=== PATIENT | female | born 1955 | race Caucasian/White ===

== ENCOUNTER 2018-12-16 10:52 | Inpatient (IN) ==
[2018-12-16] MEDS ORDERED: NS 1,000 ML IV ONE ×2 (11:35→12:46)
[2018-12-16] MEDS ORDERED: HUMULIN R SUBQ ONE ×2 (11:36→12:46)
[2018-12-16 12:16] LABS: BASO# 0.06 X1000 (0.0-0.2); BASO% 0.4 % (0.0-0.8); HEMATOCRIT 42.4 % (37.0-47.0); HEMOGLOBIN 13.2 g/dL (12.0-16.0); IMM GRAN# 0.28 X1000 (0.0-0.04); IMM GRAN% 1.8 % (0.0-0.5); LYMPH% 11.3 % (20.5-51.1); MCH 27.4 PG (27-31); MCHC 31.1 g/dL (33-37); MCV 88.1 FL (81-99); MONO# 1.41 X1000 (0.11-0.59); MONO% 8.9 % (1.7-9.3); MPV 11.4 FL (7.4-10.4); NEUT# 12.35 X1000 (1.4-6.5); NEUT% 77.6 % (42.2-75.2); PLT 369 X1000 (130-400); RBC 4.81 XMIL (4.2-5.4); RDW 13.7 % (11.5-14.5)
[2018-12-16 12:19] LABS: ALB/GLOB RATIO 1.2; ALBUMIN 3.5 g/dL (3.5-5.0); CREATININE 1.9 mg/dL (0.5-0.9); TOTAL BILIRUBIN 0.3 mg/dL (0.20-1.00); TOTAL PROTEIN 6.5 g/dL (6.3-8.3)
[2018-12-16 12:36] LABS: POTASSIUM 6.3 mmol/L (3.5-5.1)
[2018-12-16] MEDS ORDERED: DUONEB (A & A) INH ONE (12:54)
[2018-12-16] MEDS ORDERED: ALBUTEROL 0.5% INH CONC FOR HYPERKALEMIA INH ONE (13:42)
[2018-12-16 13:56] LABS: URINE SOURCE CATH
[2018-12-16] MEDS ORDERED: HUMULIN R 100 UNIT in NS 100 ML IV SCH (14:00)
[2018-12-16 14:01] LABS: BILIRUBIN URINE NEGATIVE (NEGATIVE); BLOOD URINE NEGATIVE (NEGATIVE); COLOR YELLOW; GLUCOSE URINE >1000 mg/dL (NEGATIVE); KETONE URINE 60 mg/dL (NEGATIVE); LEUKOCYTES URINE NEGATIVE (NEGATIVE); NITRITE URINE NEGATIVE (NEGATIVE); PROTEIN URINE TRACE mg/dL (NEGATIVE); SP GRAVITY URINE 1.015; TURBIDITY URINE CLEAR (CLEAR); UR EPITHELIAL CELLS <10 /HPF (<10); URINE BACTERIA NEGATIVE /HPF; URINE RBC <10 /HPF (<10); URINE WBC <10 /HPF (<10); UROBILINOGEN URINE NORMAL (NORMAL)
[2018-12-16] MEDS ORDERED: LEVAQUIN 500 MG/D5W 500 MG/100 ML IVPB IV ONE (14:06)
[2018-12-16 14:26] LABS: ALLEN TEST NO; BE -25.2 mmoll (-3.0-3.0); BLOOD TYPE ARTERIAL; HCO3-(ACT) 5.3 mmoll (20.0-26.0); METHB 1.1 % (0.0-1.5); O2(CT) 15.4 mL/dL (15.0-23.0); O2HB 96.7 % (95.0-99.0); PO2(98.6) 114 mmHg (60-100); SAMPLE BLOOD; SAO2 99.2 % (95.0-100.0); THB 11.2 g/dL (11.5-17.4)
[2018-12-16 14:29] LABS: MODALITY ROOM AIR
[2018-12-16 14:31] LABS: PCO2(98.6) 14 mmHg (35-45); pH(98.6) 7.03 (7.35-7.45)
[2018-12-16] MEDS ORDERED: SODIUM BICARBONATE 8.4% IV PUSH ONE (15:32)
[2018-12-16] MEDS ORDERED: CALCIUM CARBONATE PO ONE (15:33)
--- NOTE | 2018-12-16 15:35 | PROVIDER DOCUMENTATION ---
This chart was entered by Divya Kim Scribe, acting as scribe for Edison Beach MD. HPI-General Adult - General Chief Complaint: High Blood Sugar Stated Complaint: HIGH BP,HIGH BLOOD SUGAR,NAUSEA,DIABETIC Time Seen by Provider: 12/16/18 11:22 Source: patient, family Allergies/Adverse Reactions: Patient Allergies Allergy/AdvReac Type Severity Reaction Status Date / Time acetaminophen [From Lortab] AdvReac NAUSEA/VOMI Verified 12/16/18 13:07 TING hydrocodone bitartrate * AdvReac NAUSEA/VOMI Verified 12/16/18 13:07 [From Lortab] TING Home Medications: Home Medication List Medication Instructions Recorded Confirmed Last Taken Type Losartan/Hydrochlorothiazide 1 tab PO DAILY 10/12/14 12/16/18 Unknown History [Hyzaar 100-12.5 Tablet] SIMVAstatin [Zocor] 40 mg PO QHS 10/12/14 12/16/18 Unknown History Benzonatate 200 mg PO TID 12/16/18 12/16/18 Unknown History Doxazosin Mesylate [Cardura] 2 mg PO DAILY 12/16/18 12/16/18 Unknown History Insulin Glargine,Hum.rec.anlog 75 unit SQ QAM 12/16/18 12/16/18 Unknown History [Toujeo Solostar] Metoprolol Succinate E.r. [Toprol 100 mg PO DAILY 12/16/18 12/16/18 Unknown History Xl] - History of Present Illness -Gen Adult Nature of Presenting Problems: 63 y/o female presents to ED with lethargy, hyperglycemia, back pain, and change in mental status onset this morning. Family of pt reports he checked her sugar after he noticed her acting strange, but she could not remember how to give herself insulin. He states she has not eaten or taken insulin in several days. Pt is sleeping, but easily aroused. Location of Pain/Injury: reports: back Pain Radiation: reports: no radiation Quality of Pain: reports: aching Severity: reports: mild Onset/Duration: reports: this morning Timing: reports: still present Context/Activities at Onset: reports: none Modifying Factors: improves with: other medication (insulin) Associated Symptoms: reports: back/neck pain (back), loss of appetite, other ( lethargic, hyperglycemia, change in mental status) Similar Symptoms Previously?: No Recently seen or treated by another doctor?: No - Diabetes Related Context Context: reports: high blood sugar, change in mental status Review of Systems - Adult - REVIEW OF SYSTEMS - ADULT Constitutional: reports: other (lethargic, change in mental status). denies: chills, fever Eyes: reports: no symptoms reported Ears, Nose, Mouth & Throat: reports: no symptoms reported Cardiovascular: denies: chest pain, palpitations Respiratory: denies: cough, shortness of breath Gastrointestinal: reports: poor appetite. denies: abdominal pain, diarrhea, nausea, vomiting Genitourinary: reports: no symptoms reported Musculoskeletal: reports: back pain. denies: joint pain Integumentary: reports: no symptoms reported Neurological: reports: other (change in mental status). denies: dizziness/ vertigo, seizure Psychiatric: reports: no symptoms reported Endocrine: reports: other (hyperglycemia). denies: goiter Hematologic/Lymphatic: reports: no symptoms reported Allergic/Immunologic: reports: no symptoms reported All Other Systems: Reviewed and Negative Past History - Adult - PAST MEDICAL HISTORY-ADULT Review of Records: reports: Old Records Reviewed, Nursing Assessment Review, Medications Reviewed Major Childhood Illnesses: reports: denies history Cardiovascular: reports: HTN, hyperlipidemia Endocrine/Immune: reports: Diabetes Diabetes Type: Type 2 - PRIOR SURGERIES/PROCEDURES Surgical/Procedure History: reports: none - IMMUNIZATION STATUS Childhood Immunizations: See Nurse Assessment Flu Vaccine: See Nurse Assessment - FAMILY HISTORY Family History: reviewed, not pertinent - SOCIAL HISTORY Smoking: quit greater than 1 year Substance Use: none/never Alcohol Use Frequency: never Living Situation: family Physical Exam-General - PHYSICAL EXAM-ADULT Initial Vital Signs Reviewed: Yes - CONSTITUTIONAL General Appearance: appears well, no apparent distress, lethargic, other ( sleeping; easily aroused) - EYES Eyes: PERRL/EOMI, pink conjunctivae - HEAD, EARS, NOSE, MOUTH & THROAT HENMT: normocephalic/atraumatic, moist mucous membranes, normal ENT inspection - NECK Neck: non-tender, full range of motion - RESPIRATORY Respiratory: chest non-tender, lungs clear, normal breath sounds - CARDIOVASCULAR Cardiovascular: normal peripheral pulses, regular rate, rhythm - GASTROINTESTINAL (ABDOMEN) Abdominal Exam: normal bowel sounds, non tender, soft - MUSCULOSKELETAL Back Exam: normal inspection, no CVA tenderness Extremity: normal range of motion, non-tender, normal gait - SKIN Integumentary: normal color, warm/dry - NEUROLOGIC Neurologic: grossly normal, other (sleeping; easily aroused) - PSYCHIATRIC Psych/Mental Status: normal mood/affect, normal thought content, normal thought process, disheveled, other (sleeping; easily aroused) Progress - PLAN OF CARE/RESULTS Progress/Plan/Lab Results: Vital Signs - 8 hr 12/16/18 10:58 Temperature 97.4 F L Pulse Rate 82 Respiratory Rate 22 Blood Pressure 128/50 O2 Sat by Pulse Oximetry 100 Laboratory Results - last 24 hr 12/16/18 12/16/18 12/16/18 11:04 11:48 11:48 WBC 15.90 H RBC 4.81 Hgb 13.2 Hct 42.4 MCV 88.1 MCH 27.4 MCHC 31.1 L RDW Std Deviation 13.7 Plt Count 369 MPV 11.4 H Immature Gran % (Auto) 1.8 H Neut % (Auto) 77.6 H Lymph % (Auto) 11.3 L Perkins % (Auto) 8.9 Eos % (Auto) 0.0 Baso % (Auto) 0.4 Immature Gran # (Auto) 0.28 H Neut # (Auto) 12.35 H Lymph # (Auto) 1.80 Perkins # (Auto) 1.41 H Eos # (Auto) 0.00 Baso # (Auto) 0.06 Sodium 127 L Potassium 6.3 H* Chloride 75 L Carbon Dioxide 6 L Anion Gap 46 BUN 61 H Creatinine 1.9 H Estimated GFR/1.73 m2 27 BUN/Creatinine Ratio 32 Glucose 941 H* POC Glucose 500 H Calculated Osmolality 319 Calcium 10.0 Total Bilirubin 0.30 AST 16 ALT 13 Alkaline Phosphatase 91 Total Protein 6.5 Albumin 3.5 Globulin 3.0 Albumin/Globulin Ratio 1.2 Orders Category Date Time Status Nursing- Obtain EKG once Care 12/16/18 12:45 Active Saline Loc NOW Care 12/16/18 11:35 Active CBC WITH ELECTRONIC DIFF [HEME] Stat Lab 12/16/18 11:48 Completed COMPREHENSIVE METABOLIC PANEL [CHEM] Stat Lab 12/16/18 11:48 Completed URINALYSIS W/POSS RFLX CULT [URINALYSIS] Stat Lab 12/16/18 11:36 Uncollected 0.9% Sodium Chloride Inj [Ns] 1,000 ml Med 12/16/18 11:35 Discontinued IV 999 mls/hr 0.9% Sodium Chloride Inj [Ns] 1,000 ml Med 12/16/18 12:46 Active IV 999 mls/hr Albuterol 2.5MG/Ipratrop 0.5MG [Duoneb (A & A)] Med 12/16/18 12:54 Discontinued 3 ml INH NOW ONE Insulin Human Regular [Humulin R] Med 12/16/18 12:46 Discontinued 10 unit SUBQ NOW ONE Insulin Human Regular [Humulin R] Med 12/16/18 11:36 Discontinued 6 unit SUBQ NOW ONE Aerosol Treatments Routine Oth 12/16/18 12:54 Active Aerosol Treatments Stat Oth 12/16/18 12:54 Active EKG [EKG] Stat Ther 12/16/18 11:36 Ordered EKG [EKG] Stat Ther 12/16/18 12:45 Ordered Laboratory Tests 12/16/18 12/16/18 12/16/18 11:04 11:48 11:48 WBC 15.90 H RBC 4.81 Hgb 13.2 Hct 42.4 MCV 88.1 MCH 27.4 MCHC 31.1 L RDW Std Deviation 13.7 Plt Count 369 MPV 11.4 H Immature Gran % (Auto) 1.8 H Neut % (Auto) 77.6 H Lymph % (Auto) 11.3 L Perkins % (Auto) 8.9 Eos % (Auto) 0.0 Baso % (Auto) 0.4 Immature Gran # (Auto) 0.28 H Neut # (Auto) 12.35 H Lymph # (Auto) 1.80 Perkins # (Auto) 1.41 H Eos # (Auto) 0.00 Baso # (Auto) 0.06 Sodium 127 L Potassium 6.3 H* Chloride 75 L Carbon Dioxide 6 L Anion Gap 46 BUN 61 H Creatinine 1.9 H Estimated GFR/1.73 m2 27 BUN/Creatinine Ratio 32 Glucose 941 H* POC Glucose 500 H Calculated Osmolality 319 Calcium 10.0 Phosphorus Magnesium Total Bilirubin 0.30 AST 16 ALT 13 Alkaline Phosphatase 91 Total Protein 6.5 Albumin 3.5 Globulin 3.0 Albumin/Globulin Ratio 1.2 Urine Source Urine Color Urine Turbidity Urine pH Ur Specific [place] Urine Protein Ur Glucose (Stick) Ur Ketones (Stick) Urine Blood Urine Nitrite Urine Bilirubin Urobilinogen Dipstick Urine Leukocytes Urine WBC (Auto) Urine RBC (Auto) U Epithel Cells (Auto) Urine Bacteria (Auto) 12/16/18 12/16/18 12/16/18 11:48 11:48 12:57 WBC RBC Hgb Hct MCV MCH MCHC RDW Std Deviation Plt Count MPV Immature Gran % (Auto) Neut % (Auto) Lymph % (Auto) Perkins % (Auto) Eos % (Auto) Baso % (Auto) Immature Gran # (Auto) Neut # (Auto) Lymph # (Auto) Perkins # (Auto) Eos # (Auto) Baso # (Auto) Sodium Potassium Chloride Carbon Dioxide Anion Gap BUN Creatinine Estimated GFR/1.73 m2 BUN/Creatinine Ratio Glucose POC Glucose 500 H Calculated Osmolality Calcium Phosphorus 9.0 H Magnesium 2.4 Total Bilirubin AST ALT Alkaline Phosphatase Total Protein Albumin Globulin Albumin/Globulin Ratio Urine Source Urine Color Urine Turbidity Urine pH Ur Specific [place] Urine Protein Ur Glucose (Stick) Ur Ketones (Stick) Urine Blood Urine Nitrite Urine Bilirubin Urobilinogen Dipstick Urine Leukocytes Urine WBC (Auto) Urine RBC (Auto) U Epithel Cells (Auto) Urine Bacteria (Auto) 12/16/18 12/16/18 13:40 13:46 WBC RBC Hgb Hct MCV MCH MCHC RDW Std Deviation Plt Count MPV Immature Gran % (Auto) Neut % (Auto) Lymph % (Auto) Perkins % (Auto) Eos % (Auto) Baso % (Auto) Immature Gran # (Auto) Neut # (Auto) Lymph # (Auto) Perkins # (Auto) Eos # (Auto) Baso # (Auto) Sodium Potassium Chloride Carbon Dioxide Anion Gap BUN Creatinine Estimated GFR/1.73 m2 BUN/Creatinine Ratio Glucose POC Glucose 500 H Calculated Osmolality Calcium Phosphorus Magnesium Total Bilirubin AST ALT Alkaline Phosphatase Total Protein Albumin Globulin Albumin/Globulin Ratio Urine Source CATH Urine Color YELLOW Urine Turbidity CLEAR Urine pH 5.0 Ur Specific [place] 1.015 Urine Protein TRACE A Ur Glucose (Stick) >1000 A Ur Ketones (Stick) 60 A Urine Blood NEGATIVE Urine Nitrite NEGATIVE Urine Bilirubin NEGATIVE Urobilinogen Dipstick NORMAL Urine Leukocytes NEGATIVE Urine WBC (Auto) <10 Urine RBC (Auto) <10 U Epithel Cells (Auto) <10 Urine Bacteria (Auto) NEGATIVE A/P: Pt in DKA, started DKA protocol. Will admit to ICU. pt stable, vitals stable. Result Diagrams: 12/16/18 11:48 12/16/18 11:48 - REASSESSMENT Reassessment #1 Time Reassessed: 12:00 Status: unchanged Reassessment #2 Time Reassessed: 13:00 (gave another dose of insulin 10 u BG >900) - EKG 1 Time of EKG reading by physician:: 11:40 EKG Read and Signed by:: Edison Beach EKG Interpretation (*Must complete 3 of following elements*): Abnormal Rate: 68 Rhythm: NSR Stanton: normal QRS: LVH (with repolarization abnormality) ID Interval: normal ST Wave: normal 2 Time of EKG reading by physician:: 13:10 EKG Read and Signed by:: Edison Beach EKG Interpretation (*Must complete 3 of following elements*): Abnormal Rate: 88 Rhythm: NSR Stanton: normal QRS: other (septal infarct) ID Interval: normal ST Wave: normal - CONSULTS/PCP/HOSPITALIST Notification #1 *Consult/PCP/Hospitalist*: Dr. Munroe Time Discussed: 14:27 Reason/Comments: DKA Consult Disposition: Admit Departure - Departure Date of Disposition Decision: 12/16/18 Time of Disposition Decision: 14:27 DIAGNOSIS: DKA (diabetic ketoacidoses) Qualifiers: Diabetes mellitus type: type 2 Diabetes mellitus complication detail: without coma Qualified Code(s): E11.10 - Type 2 diabetes mellitus with ketoacidosis without coma Disposition: ADMITTED INPATIENT 09 Certified Medical Emergency: Emergent Condition: Fair - Critical Care Note This patient required my direct & personal management of CC.: No Attestation - Physician/ KEVAN Attestation Patient care was provided by Advanced Practice Provider:: No The physician spent face to face time with patient:: Yes Advanced Practice Provider documentation review:: Supervising physician onsite and consulted in the evaluation and care of this patient. The physician did have a face to face encounter with the patient. This chart was documented by the indicated scribe, (Divya Kim Scribe) and accurately reflects the services I performed and decisions made by Yong florence Christophe J., MD, as attested by the provider's signature.
[2018-12-16] MEDS ORDERED: SODIUM CHLORIDE 0.9% INJ SCH (15:45)
[2018-12-16] MEDS ORDERED: PROTONIX IV SCH (15:45)
[2018-12-16] MEDS ORDERED: D5 NS 1,000 ML IV SCH (15:55)
[2018-12-16] MEDS ORDERED: TUMS PO ONE (16:00)
--- NOTE | 2018-12-16 16:00 | HISTORY AND PHYSICAL ---
CHIEF COMPLAINT: Polyuria, polydipsia, elevated blood sugar, confusion. HISTORY OF PRESENT ILLNESS: She is a 63-year-old white female patient of Dr. Munroe who came in with above problems. The patient was found to be with blood sugar 940. Apparently, she skipped the insulin for few days. She was seen at her family physician on Monday. Details are not known. Patient is slightly confused. She has acidotic. Blood sugar 940 with ketones, metabolic acidosis. Admitted to the ICU for DKA. Follow up on insulin protocol. She was started on IV fluids, insulin, followed by insulin drip. As a result, hospital admission was warranted. PAST MEDICAL HISTORY: Hypertension, type 2 diabetes insulin dependent, hyperlipidemia. PAST SURGICAL HISTORY: None reported. MEDICATIONS: Amlodipine 5 mg daily, Humalog mix 50/50 45 units subcutaneous b.i.d., Hyzaar 100/12.5 daily, simvastatin 40 daily. ALLERGIES: [place]. SOCIAL HISTORY: She is 4th time. No children. 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 No smoking. No alcohol. FAMILY HISTORY: Father of prostate cancer. Mom of heart attack. HEALTH MAINTENANCE: Not up-to-date on flu, pneumonia, mammography, colonoscopy. REVIEW OF SYSTEMS: Constitutional: Confused. HEENT: Just vision problems and dryness of the mouth. No sore throat. Neck: No neck pain. No goiter. Cardiopulmonary: No chest pain, shortness of breath, PND, orthopnea. She is hyperventilating due to Kussmaul breathing. GI: No nausea, vomiting, abdominal pain, diarrhea. : History of hesitancy, polyuria, polydipsia. Musculoskeletal: No swelling of feet. No joint pains. No back pain. Neurologic: No focal symptoms, seizures, dizziness, vertigo. PHYSICAL EXAMINATION: VITAL SIGNS: She is tachypneic and tachycardic. Hemodynamics were stable. No fever. HEENT: Atraumatic, normocephalic. Pupils equal, react to light. Dry mucous membranes. NECK: Supple. No lymphadenopathy. CHEST: Bilateral air entry. HEART: Sounds are regular. ABDOMEN: Belly is soft, nontender. Good bowel sounds. Very obese. No signs of peritonitis. EXTREMITIES: No peripheral edema. Sensory exam intact. Decreased pulses. No signs of gangrene. NEUROLOGICAL: No focal deficits. INVESTIGATIONS: White cell count 15, hematocrit 42, platelets 369,000. ABG: pH is 7.0, pCO2 14, pO2 114. Lactate 3.5. SMA 7: Sodium 137, potassium 6.3, BUN 61, creatinine 1.9, glucose 941. Phosphorus 9.0. Urinalysis positive for ketones. ASSESSMENT AND PLAN: A 63-year-old white female admitted to the hospital with diabetic ketoacidosis with Kussmaul breathing, resuscitated in the emergency room. IV fluids, IV insulin drip, DKA protocol. Getting to bed in ICU. Continue DVT prophylaxis with Lovenox, gastrointestinal prophylaxis with IV Protonix, and slowly reconcile home medications. Discussed with the family at bedside and Dr. Dell Munroe is going to follow up in the morning. cc: MD Dell Catherine MD
[2018-12-16] MEDS: NS 1,000 ML IV SCH (18:16)
[2018-12-16] MEDS ORDERED: HUMULIN R 100 UNIT in NS 99 ML IV SCH (19:17)
[2018-12-16] MEDS ORDERED: D50W SYRINGE IV PRN (19:17)
[2018-12-16 20:27] LABS: CALCIUM 8.6 mg/dL (8.8-10.2); CREATININE 2.2 mg/dL (0.5-0.9); MAGNESIUM 2.1 mg/dL (1.5-2.7); PHOSPHORUS 6.3 mg/dL (2.7-4.5); POTASSIUM 4.3 mmol/L (3.5-5.1)
[2018-12-16 22:26] LABS: ALLEN TEST YES; BE -16.9 mmoll (-3.0-3.0); BLOOD TYPE ARTERIAL; HCO3-(ACT) 11.8 mmoll (20.0-26.0); O2(CT) 15.9 mL/dL (15.0-23.0); O2HB 97.4 % (95.0-99.0); PO2(98.6) 146 mmHg (60-100); SAMPLE BLOOD; THB 11.4 g/dL (11.5-17.4); pH(98.6) 7.27 (7.35-7.45)
[2018-12-16 22:27] LABS: MODALITY ROOM AIR; PCO2(98.6) 17 mmHg (35-45)
[2018-12-17 00:13] LABS: CALCIUM 8.7 mg/dL (8.8-10.2); CREATININE 2.1 mg/dL (0.5-0.9); MAGNESIUM 1.9 mg/dL (1.5-2.7); PHOSPHORUS 3.8 mg/dL (2.7-4.5)
[2018-12-17] MEDS: NS 1,000 ML IV SCH ×4 (02:17→20:09)
[2018-12-17 02:20] LABS: ALLEN TEST YES; BE -8.9 mmoll (-3.0-3.0); BLOOD TYPE ARTERIAL; O2(CT) 15.3 mL/dL (15.0-23.0); O2HB 97.1 % (95.0-99.0); PCO2(98.6) 25 mmHg (35-45); PO2(98.6) 147 mmHg (60-100); SAMPLE BLOOD; SAO2 99.7 % (95.0-100.0); pH(98.6) 7.38 (7.35-7.45)
[2018-12-17 02:21] LABS: MODALITY ROOM AIR
[2018-12-17 05:29] LABS: CALCIUM 8.5 mg/dL (8.8-10.2); CREATININE 1.9 mg/dL (0.5-0.9); MAGNESIUM 1.7 mg/dL (1.5-2.7); PHOSPHORUS 1.9 mg/dL (2.7-4.5); POTASSIUM 3.7 mmol/L (3.5-5.1)
[2018-12-17 05:43] LABS: CREATININE 1.8 mg/dL (0.5-0.9); MAGNESIUM 1.9 mg/dL (1.5-2.7)
[2018-12-17] MEDS ORDERED: MAGNESIUM SULFATE 2 GM/S.W.I. 2 GM/50 ML IVPB IV ONE (05:48)
[2018-12-17 05:57] LABS: ALLEN TEST YES; BE -5.4 mmoll (-3.0-3.0); BLOOD TYPE ARTERIAL; HCO3-(ACT) 20.7 mmoll (20.0-26.0); METHB 1.6 % (0.0-1.5); MODALITY ROOM AIR; O2(CT) 15.5 mL/dL (15.0-23.0); O2HB 95.7 % (95.0-99.0); PCO2(98.6) 32 mmHg (35-45); PO2(98.6) 97 mmHg (60-100); SAMPLE BLOOD; SAO2 98.8 % (95.0-100.0); THB 11.4 g/dL (11.5-17.4); pH(98.6) 7.38 (7.35-7.45)
[2018-12-17 06:01] LABS: ALB/GLOB RATIO 0.9; ALBUMIN 2.9 g/dL (3.5-5.0); CREATININE 1.7 mg/dL (0.5-0.9); TOTAL BILIRUBIN 0.21 mg/dL (0.20-1.00); TOTAL PROTEIN 6.2 g/dL (6.3-8.3)
--- NOTE | 2018-12-17 07:20 | EKG Report ---
Test Performed on : 12/16/2018 12:56:03 PM Test Reason : CP Blood Pressure : / mmHG Vent. Rate : 088 BPM Atrial Rate : 088 BPM P-R Int : 134 ms QRS Dur : 076 ms QT Int : 374 ms P-R-T Axes : 075 -05 041 degrees QTc Int : 452 ms Normal sinus rhythm. Septal infarct , age undetermined Abnormal ECG When compared with ECG of 16-DEC-2018 11:15, (Unconfirmed) Septal infarct is now present Unconfirmed Result
--- NOTE | 2018-12-17 07:21 | Diag Imaging Result Doc PS360 ---
EXAM: CHEST-PORTABLE 12/17/2018 HISTORY: NG tube placement TECHNIQUE: AP portable at 0529 COMMENT: There is an NG tube with its tip below the diaphragm. The heart size is within normal limits and the lungs appear to be clear. IMPRESSION: NG tube in the stomach. Electronically signed by David Fair 12/17/2018 7:18 AM
--- NOTE | 2018-12-17 08:09 | PROGRESS NOTE ---
DATE: 12/17/2018 SUBJECTIVE: The patient is a 63-year-old white female who presented to the ER with nausea, confusion, elevated blood sugar over 900. Admitted by Dr. Camp for diabetic ketoacidosis. She was given IV insulin and fluids in the emergency room. Blood gases this morning are improved with pH 7.38, pCO2 32, PO2 97, base excess -5.4. OBJECTIVE: Vital signs: Temperature 98, heart rate 93, respiration 19, blood pressure 167/48, O2 saturation on room air 99%. General: Patient is lethargic, but arousable. She complains of no specific pain. Chest: Clear. Abdomen: Soft. LABORATORY: Sodium 136, potassium 4, chloride 93, carbon dioxide 16, BUN 66, creatinine 1.7, glucose 387, total protein 6.2, albumin 2.9. Liver functions normal. Vitamin B12 greater than 2000. TSH 1.4. PLAN: Resume her home insulin and continue sliding scale. NG tube will remain until later today to see if she tolerates p.o. liquids. She will be kept in ICU today. cc: Dell Munroe MD
[2018-12-17 08:18] LABS: BASO# 0.04 X1000 (0.0-0.2); BASO% 0.3 % (0.0-0.8); HEMATOCRIT 34.4 % (37.0-47.0); HEMOGLOBIN 11.8 g/dL (12.0-16.0); IMM GRAN# 0.13 X1000 (0.0-0.04); LYMPH# 1.62 X1000 (1.2-3.4); LYMPH% 12.5 % (20.5-51.1); MCH 27.9 PG (27-31); MCHC 34.3 g/dL (33-37); MCV 81.3 FL (81-99); MONO# 1.28 X1000 (0.11-0.59); MONO% 9.9 % (1.7-9.3); MPV 10.2 FL (7.4-10.4); NEUT# 9.86 X1000 (1.4-6.5); NEUT% 76.3 % (42.2-75.2); PLT 284 X1000 (130-400); RBC 4.23 XMIL (4.2-5.4); RDW 13.6 % (11.5-14.5); WBC 12.93 X1000 (4.8-10.8)
--- NOTE | 2018-12-17 08:21 | EKG Report ---
Test Performed on : 12/16/2018 11:15:05 AM Test Reason : high blood sugar Blood Pressure : / mmHG Vent. Rate : 068 BPM Atrial Rate : 068 BPM P-R Int : 132 ms QRS Dur : 082 ms QT Int : 408 ms P-R-T Axes : 074 000 068 degrees QTc Int : 433 ms Normal sinus rhythm. Left ventricular hypertrophy with repolarization abnormality Abnormal ECG No previous ECGs available Unconfirmed Result
[2018-12-17 08:58] LABS: CALCIUM 8.6 mg/dL (8.8-10.2); CREATININE 1.4 mg/dL (0.5-0.9); MAGNESIUM 2.4 mg/dL (1.5-2.7); PHOSPHORUS 1.5 mg/dL (2.7-4.5); POTASSIUM 3.5 mmol/L (3.5-5.1)
[2018-12-17] MEDS ORDERED: LOVENOX SUBQ SCH (09:00)
[2018-12-17] MEDS ORDERED: INSULIN PEN NEEDLES ONE (09:24)
[2018-12-17] MEDS: TOUJEO SOLOSTAR SUBQ SCH (09:27)
[2018-12-17] MEDS: ZOFRAN IV PRN ×2 (09:42→14:37)
[2018-12-17 09:59] LABS: ALLEN TEST NO; BE -3.2 mmoll (-3.0-3.0); BLOOD TYPE ARTERIAL; HCO3-(ACT) 22.4 mmoll (20.0-26.0); METHB 1.7 % (0.0-1.5); O2(CT) 15.2 mL/dL (15.0-23.0); O2HB 95.1 % (95.0-99.0); PCO2(98.6) 35 mmHg (35-45); PO2(98.6) 88 mmHg (60-100); SAMPLE BLOOD; SAO2 98.2 % (95.0-100.0); THB 11.3 g/dL (11.5-17.4); pH(98.6) 7.39 (7.35-7.45)
[2018-12-17 10:00] LABS: MODALITY ROOM AIR
[2018-12-17] MEDS: HUMALOG SUBQ SCH ×3 (11:03→20:10)
[2018-12-17 12:21] LABS: CALCIUM 8.6 mg/dL (8.8-10.2); CREATININE 1.2 mg/dL (0.5-0.9); MAGNESIUM 2.3 mg/dL (1.5-2.7); PHOSPHORUS 2.2 mg/dL (2.7-4.5); POTASSIUM 3.8 mmol/L (3.5-5.1)
[2018-12-17] MEDS: HYZAAR 100/12.5 MG TAB PO SCH (12:38)
[2018-12-17] MEDS: MYCOSTATIN POWDER TOP SCH ×2 (12:39→20:09)
[2018-12-17] MEDS: TOPROL XL PO SCH (12:39)
[2018-12-18] MEDS: NS 1,000 ML IV SCH ×4 (04:29→21:33)
[2018-12-18 06:25] LABS: AGAP 11; BUN 24 mg/dL (8-22); CALCIUM 8.3 mg/dL (8.8-10.2); CHLORIDE 108 mmol/L (98-107); COSMO 298; CREATININE 0.8 mg/dL (0.5-0.9); ESTIMATED GFR > 60; GLUCOSE 153 mg/dL (70-104); POTASSIUM 3.3 mmol/L (3.5-5.1); SODIUM 146 mmol/L (136-145); TCO2 27 mmol/L (25-35)
[2018-12-18] MEDS: HUMALOG SUBQ SCH ×4 (06:54→21:31)
[2018-12-18] MEDS: HYZAAR 100/12.5 MG TAB PO SCH (08:37)
[2018-12-18] MEDS: TOPROL XL PO SCH (08:37)
[2018-12-18] MEDS: MYCOSTATIN POWDER TOP SCH (08:38)
--- NOTE | 2018-12-18 08:44 | PROGRESS NOTE ---
DATE: 12/18/2018 VITAL SIGNS: Temperature 97.8 degrees, heart rate 69, respirations 21, blood pressure 150/65, O2 saturation on room air 96%. LABORATORY: Sodium 146, potassium 3.3, BUN 24, creatinine 0.8, glucose 175, calcium 8.3. OBJECTIVE: The patient is alert, but weak. She had no vomiting overnight. Chest is clear. Abdomen is soft. PLAN: Discontinue Younger, increased diet to soft, transfer to the floor, ambulate with assistance. cc: Dell Munroe MD
[2018-12-18] MEDS ORDERED: MYCOSTATIN POWDER TOP SCH (08:50)
[2018-12-18] MEDS: TOUJEO SOLOSTAR SUBQ SCH (09:46)
--- NOTE | 2018-12-18 09:56 | Diag Imaging Result Doc PS360 ---
EXAM: MRI BRAIN W/O CONTRAST 12/18/2018 HISTORY: mental change TECHNIQUE: T1 sagittal, axial, T2, FLAIR, DWI axial and coronal gradient echo. COMMENT: There are no previous studies available for comparison. There is no evidence of restricted diffusion. There is no evidence of mass effect, bleed, or abnormal extra-axial fluid collection. There are no T2 weighted signal abnormalities. IMPRESSION: Normal MRI of the brain. Electronically signed by David Fair 12/18/2018 9:54 AM
[2018-12-18] MEDS: CARDURA PO SCH (14:02)
[2018-12-18] MEDS: ZOFRAN IV PRN (17:38)
[2018-12-18] MEDS: ZOCOR PO SCH (21:30)
[2018-12-19] MEDS: NS 1,000 ML IV SCH ×3 (05:23→18:11)
[2018-12-19] MEDS: HUMALOG SUBQ SCH ×4 (07:22→21:45)
--- NOTE | 2018-12-19 09:14 | PROGRESS NOTE ---
DATE: 12/19/2018 VITAL SIGNS: Temperature 98.5 degrees, heart rate 81, respiration 18, blood pressure 153/55, O2 saturation on room air 96%. The patient is somnolent, but arousable. She has not eaten any breakfast. She responds appropriately, but continues to be very weak. Physical therapy will be asked to assist in ambulation. Hopefully, she will improve through the day today. She has had no nausea and vomiting. Last blood sugar was 161. PLAN: Discharge home when eating and ambulating. cc: Dell Munroe MD
[2018-12-19] MEDS: HYZAAR 100/12.5 MG TAB PO SCH (09:48)
[2018-12-19] MEDS: TOPROL XL PO SCH (09:49)
[2018-12-19] MEDS: CARDURA PO SCH (09:49)
[2018-12-19] MEDS: TOUJEO SOLOSTAR SUBQ SCH (09:49)
[2018-12-19] MEDS ORDERED: INSULIN PEN NEEDLES ONE (09:55)
[2018-12-19] MEDS ORDERED: LEXAPRO PO ONE (17:02)
[2018-12-19] MEDS: LEXAPRO PO SCH (17:30)
[2018-12-19] MEDS: ZOCOR PO SCH (21:45)
[2018-12-20] MEDS: HUMALOG SUBQ SCH ×4 (06:43→21:45)
[2018-12-20] MEDS: NS 1,000 ML IV SCH ×3 (07:05→21:47)
[2018-12-20 07:48] LABS: AGAP 11; BUN 12 mg/dL (8-22); CALCIUM 7.1 mg/dL (8.8-10.2); CHLORIDE 101 mmol/L (98-107); COSMO 286; CREATININE 0.6 mg/dL (0.5-0.9); ESTIMATED GFR > 60; GLUCOSE 151 mg/dL (70-104); POTASSIUM 2.7 mmol/L (3.5-5.1); SODIUM 142 mmol/L (136-145); TCO2 30 mmol/L (25-35)
--- NOTE | 2018-12-20 08:28 | PROGRESS NOTE ---
DATE: 12/20/2018 VITAL SIGNS: Temperature 97.8 degrees, heart rate 78, respirations 17, blood pressure 174/69, O2 saturation on room air of 97%. LABORATORY: Sodium 142, potassium 2.7, BUN 12, creatinine 0.6, glucose 151, calcium 7.1. SUBJECTIVE: Patient is somnolent, but arousable. She seems a little more alert and responds appropriately to questioning. OBJECTIVE: Chest is clear. Abdomen is soft and nontender. PLAN: Add IV potassium. Recheck potassium this afternoon at 4. Physical therapy is just to assist ambulation. Hopefully, she will be able to eat a little better today. cc: Dell Munroe MD
[2018-12-20] MEDS: TOUJEO SOLOSTAR SUBQ SCH (09:06)
[2018-12-20] MEDS: LEXAPRO PO SCH (09:07)
[2018-12-20] MEDS: HYZAAR 100/12.5 MG TAB PO SCH (09:07)
[2018-12-20] MEDS: TOPROL XL PO SCH (09:07)
[2018-12-20] MEDS: CARDURA PO SCH (09:08)
[2018-12-20] MEDS: POTASSIUM CHLORIDE 20 MEQ/SWI 20 MEQ/100 ML IVPB IV SCH ×2 (09:38→12:51)
[2018-12-20] MEDS: ZOCOR PO SCH (21:46)
[2018-12-20] MEDS: KLOR-CON PO SCH (21:47)
[2018-12-21] MEDS: HUMALOG SUBQ SCH (07:24)
[2018-12-21] MEDS: NS 1,000 ML IV SCH (07:34)
[2018-12-21] MEDS: KLOR-CON PO SCH (08:01)
[2018-12-21] MEDS: TOPROL XL PO SCH (08:01)
[2018-12-21] MEDS: LEXAPRO PO SCH (08:01)
[2018-12-21] MEDS: CARDURA PO SCH (08:01)
[2018-12-21] MEDS: HYZAAR 100/12.5 MG TAB PO SCH (08:01)
[2018-12-21] MEDS: TOUJEO SOLOSTAR SUBQ SCH (08:05)
[2018-12-21 08:11] VITALS: BP 160/61
--- NOTE | 2018-12-21 08:26 | DISCHARGE SUMMARY ---
ADMISSION DATE: 12/16/2018 DISCHARGE DATE: 12/21/2018 FINAL DIAGNOSES: 1. Diabetic ketoacidosis. 2. Gastritis. 3. Dehydration. 4. Uncontrolled diabetes. 5. Hypertension. 6. Hypercholesterolemia. DISCHARGE MEDICATIONS: Usual medication at home including Lantus 75 units subcu every morning, and addition of potassium chloride 10 mEq b.i.d. (14), Lexapro 10 mg (30 with 2 refills), and doxazosin 2 mg (30 with 2 refills 1 daily). HISTORY: This is the first recent [facility] admission for this 63-year-old white female who presented to the emergency room with nausea and vomiting, change in mental status with lethargy, and was found to have blood sugar over 900. She was acidotic and volume depleted. She was given fluids in the emergency room and IV insulin. She was transferred to intensive care unit for additional care. INITIAL LABORATORY: Sodium 127, potassium 6.3, glucose 941, magnesium 2.4, phosphorus 9.0, hemoglobin 13.2, hematocrit 42.4, and white blood count [id number]. Urinalysis with less than 10 WBCs and negative for bacteria. HOSPITAL COURSE: She slowly improved to intensive care and blood sugar dropped to the 100s. Nausea slowly resolved. Initially, she had an NG tube. This was removed the day after admission. She was placed on clear liquids. As she improved, her diet was increased. She continues to have poor appetite, but is improving. She has had no further nausea or vomiting. Potassium dropped to 2.7 and after IV potassium hayden to 3.4. Hemoglobin A1c was done on 12/17 and was 11.0. Vitamin B12 was greater than 2000. TSH was 1.4. Blood sugar this morning is 112. She is feeling well, and has been ambulatory in the [facility]. She is discharged home on the above medications and is to be seen back in 1 week in the office. Lab will be checked then. She is to maintain a record of daily glucoses 3 times a day. cc: Dell Munroe MD
== END 2018-12-21 09:08 | disposition home health service (06) | DRG 638 ==
LOC: ED 10:52 → EDIPHOLD 10:53 → ICU 18:13 → 3N 12-18 11:09
PROVIDERS: ADMIT Family Medicine; ATTEND Family Medicine
CPT/HCPCS: 51701; 70551; 71010; 71045; 80048; 80053; 81001; 82607; 82805; 82947; 82948; 83036; 83735; 84100; 84132; 84443; 84484; 85025; 93005; 94640; 94762; 96361; 96374; 97162; 97530; 99285; A9270; C9113; J1815; J2405; J3475; J3480; J7030; P9612; S0164; XXXXX